=== PATIENT | female | born 1985 | race Caucasian/White ===

== ENCOUNTER 2017-05-18 11:53 | Emergency (ER) | payer OTHER | END 2017-05-18 12:10 | disposition home or self-care (01) | LOC: E/R 12:10 | DX: Z76.0 Encounter for issue of repeat prescription (principal); E03.9 Hypothyroidism, unspecified; Z87.891 Personal history of nicotine dependence | CPT/HCPCS: 99281; Z7502 ==

== ENCOUNTER 2017-06-05 02:51 | Emergency (ER) | payer SELFPAY, OTHER | END 2017-06-05 04:39 | disposition left against medical advice (07) | LOC: FTE 02:51 | DX: Z53.21 Procedure and treatment not carried out due to patient leaving prior to being seen by health care provider (principal) ==

== ENCOUNTER 2017-07-18 00:11 | Emergency (ER) | payer SELFPAY, MEDICAID ==
[2017-07-18] MEDS: LAMOTRIGINE 25 MG TAB PO (01:08)
== END 2017-07-18 01:11 | disposition home or self-care (01) ==
LOC: E/R 00:11
DX: F31.11 Bipolar disorder, current episode manic without psychotic features, mild (principal); E03.9 Hypothyroidism, unspecified; Z76.0 Encounter for issue of repeat prescription; Z87.891 Personal history of nicotine dependence
CPT/HCPCS: 99283

== ENCOUNTER 2017-07-28 09:44 | Emergency (ER) | payer SELFPAY | END 2017-07-28 16:55 | disposition left against medical advice (07) | LOC: FTE 09:44 | DX: Z53.21 Procedure and treatment not carried out due to patient leaving prior to being seen by health care provider (principal) ==

== ENCOUNTER 2017-09-17 00:40 | Emergency (ER) | payer OTHER ==
[2017-09-17] MEDS: LAMOTRIGINE 25 MG TAB PO (01:46)
== END 2017-09-17 04:00 | disposition left against medical advice (07) ==
LOC: FTE 00:40
DX: Z76.0 Encounter for issue of repeat prescription (principal); E03.9 Hypothyroidism, unspecified
CPT/HCPCS: 99283; Z7502

== ENCOUNTER 2017-09-25 00:08 | Emergency (ER) | payer OTHER ==
[2017-09-25] MEDS: LAMOTRIGINE 25 MG TAB PO (01:57)
== END 2017-09-25 02:24 | disposition home or self-care (01) ==
LOC: FTE 00:08
DX: B37.9 Candidiasis, unspecified (principal); L02.415 Cutaneous abscess of right lower limb; E03.9 Hypothyroidism, unspecified; Z87.891 Personal history of nicotine dependence
CPT/HCPCS: 99284; Z7502

== ENCOUNTER 2017-10-23 11:56 | Emergency (ER) | payer OTHER ==
[2017-10-23] MEDS: LAMOTRIGINE 25 MG TAB PO (12:49)
== END 2017-10-23 13:03 | disposition home or self-care (01) ==
LOC: FTE 13:03
DX: A63.0 Anogenital (venereal) warts (principal); E03.9 Hypothyroidism, unspecified; Z76.0 Encounter for issue of repeat prescription
CPT/HCPCS: 99283; Z7502

== ENCOUNTER 2017-11-26 10:11 | Emergency (ER) | payer OTHER | END 2017-11-26 12:03 | disposition home or self-care (01) | LOC: FTE 10:11 | DX: Z76.0 Encounter for issue of repeat prescription (principal) | CPT/HCPCS: 99281; Z7502 ==

== ENCOUNTER 2017-12-10 14:54 | Emergency (ER) | payer OTHER | END 2017-12-10 15:59 | disposition home or self-care (01) | LOC: FTE 14:54 | DX: L02.31 Cutaneous abscess of buttock (principal) | CPT/HCPCS: 99283; Z7502 ==

== ENCOUNTER 2017-12-22 03:29 | Emergency (ER) | payer OTHER ==
[2017-12-22 05:40] LABS: URINE BLOOD (Dip) POC 1+ (NEGATIVE); URINE GLUCOSE (Dip) POC Negative (NEGATIVE); URINE KETONES (Dip) POC Negative (NEGATIVE); URINE LEUKOCYTE EST (Dip) POC 1+ (NEGATIVE); URINE NITRITE (Dip) POC Negative (NEGATIVE); URINE TOTAL PROTEIN POC Trace (NEGATIVE)
[2017-12-22 05:40] LABS: URINE PH (Dip) POC 7.5 (5.0-8.5)
== END 2017-12-22 06:00 | disposition home or self-care (01) ==
LOC: FTE 03:29
DX: N39.0 Urinary tract infection, site not specified (principal)
CPT/HCPCS: 81003; 99283

== ENCOUNTER 2018-01-02 00:08 | Emergency (ER) | payer OTHER | END 2018-01-02 01:08 | disposition home or self-care (01) | LOC: FTE 00:08 | DX: F41.9 Anxiety disorder, unspecified (principal); L65.9 Nonscarring hair loss, unspecified; E03.9 Hypothyroidism, unspecified; Z76.0 Encounter for issue of repeat prescription | CPT/HCPCS: 99282 ==

== ENCOUNTER 2018-01-15 23:21 | Emergency (ER) | payer OTHER ==
[2018-01-16] MEDS ORDERED: SOD CHLORIDE 0.9% 1,000 ML IV (03:05)
[2018-01-16] MEDS ORDERED: KETOROLAC 15 MG INJ IV (03:05)
[2018-01-16] MEDS ORDERED: CEFTRIAXONE 1 GM/50 ML (PMX) 50 ML IVPB (03:05)
[2018-01-16 03:19] LABS: ADD MAN DIFF? NO
[2018-01-16 03:20] LABS: BASOPHILS % 0.4 % (0.0-2.0); EOSINOPHILS # 0.1 10^3/ul (0.0-0.5); EOSINOPHILS % 1.2 % (0.0-7.0); HEMATOCRIT 34.5 % (37.0-47.0); HEMOGLOBIN 11.4 g/dl (12.0-16.0); LYMPHOCYTES # 2.1 10^3/ul (0.8-2.9); LYMPHOCYTES % 37.1 % (15.0-51.0); MEAN CORPUSCULAR HEMOGLOBIN 29.7 pg (29.0-33.0); MEAN CORPUSCULAR VOLUME 89.8 fl (82.0-101.0); MONOCYTE # 0.5 10^3/ul (0.3-0.9); MONOCYTES % 8.1 % (0.0-11.0); PLATELET COUNT 187 10^3/UL (140-415); RED BLOOD COUNT 3.84 10^6/ul (4.20-5.40); RED CELL DISTRIBUTION WIDTH 12.7 % (11.5-14.5)
[2018-01-16 03:20] LABS: WHITE BLOOD COUNT 5.7 10^3/ul (4.8-10.8)
[2018-01-16 03:36] LABS: ANION GAP 9 (5-13); BLOOD UREA NITROGEN 17 mg/dl (7-20); CALCIUM 9.5 mg/dl (8.4-10.2); CARBON DIOXIDE 32 mmol/L (21-31); CHLORIDE 105 mmol/L (97-110); CREATININE 0.56 mg/dl (0.44-1.00); Estimated GFR > 60 mL/min (>60); GLUCOSE 114 mg/dl (70-220); POTASSIUM 3.7 mmol/L (3.5-5.1); SODIUM 146 mmol/L (135-144)
== END 2018-01-16 04:15 | disposition left against medical advice (07) ==
LOC: E/R 23:21
DX: F15.10 Other stimulant abuse, uncomplicated (principal); F11.10 Opioid abuse, uncomplicated; L03.211 Cellulitis of face; R40.2142 Coma scale, eyes open, spontaneous, at arrival to emergency department; R40.2252 Coma scale, best verbal response, oriented, at arrival to emergency department; R40.2362 Coma scale, best motor response, obeys commands, at arrival to emergency department
CPT/HCPCS: 36415; 80048; 85025; 99283

== ENCOUNTER 2018-01-25 16:34 | Emergency (ER) | payer OTHER ==
[2018-01-25] MEDS: LAMOTRIGINE 100 MG TAB PO (19:39)
== END 2018-01-25 19:41 | disposition home or self-care (01) ==
LOC: FTE 19:41
DX: Z76.0 Encounter for issue of repeat prescription (principal)
CPT/HCPCS: 99281; Z7502

== ENCOUNTER 2018-02-20 12:33 | Emergency (ER) | payer OTHER ==
[2018-02-20] MEDS: MUPIROCIN 2% 22 GM OINT TOP (15:03)
== END 2018-02-20 15:05 | disposition home or self-care (01) ==
LOC: FTE 12:33
DX: L02.01 Cutaneous abscess of face (principal); B95.8 Unspecified staphylococcus as the cause of diseases classified elsewhere
CPT/HCPCS: 99283; Z7502

== ENCOUNTER 2018-02-24 03:08 | Emergency (ER) | payer OTHER ==
[2018-02-24] MEDS: LIDOCAINE 1% (MDV) 20 ML INJ SC (04:20)
[2018-02-24] MEDS: CEFTRIAXONE 1 GM INJ IM (04:20)
== END 2018-02-24 04:22 | disposition home or self-care (01) ==
LOC: FTE 03:08
DX: K08.89 Other specified disorders of teeth and supporting structures (principal); L08.9 Local infection of the skin and subcutaneous tissue, unspecified; L02.415 Cutaneous abscess of right lower limb; L02.01 Cutaneous abscess of face
CPT/HCPCS: 96372; 99284-25

== ENCOUNTER 2018-03-31 15:48 | Emergency (ER) | payer SELFPAY, OTHER | END 2018-03-31 20:35 | disposition left against medical advice (07) | LOC: FTE 15:48 | DX: Z53.21 Procedure and treatment not carried out due to patient leaving prior to being seen by health care provider (principal) ==

== ENCOUNTER 2018-04-12 00:27 | Emergency (ER) | payer SELFPAY | END 2018-04-12 05:05 | disposition left against medical advice (07) | LOC: FTE 00:27 | DX: Z53.21 Procedure and treatment not carried out due to patient leaving prior to being seen by health care provider (principal) ==

== ENCOUNTER 2018-04-12 07:54 | Emergency (ER) | payer OTHER ==
[2018-04-12] MEDS: LAMOTRIGINE 100 MG TAB PO (08:24)
== END 2018-04-12 08:27 | disposition home or self-care (01) ==
LOC: FTE 07:54
DX: Z76.0 Encounter for issue of repeat prescription (principal); E03.9 Hypothyroidism, unspecified; F17.210 Nicotine dependence, cigarettes, uncomplicated
CPT/HCPCS: 99283; Z7502

== ENCOUNTER 2018-05-07 12:08 | Emergency (ER) | payer OTHER ==
[2018-05-07] MEDS: LAMOTRIGINE 100 MG TAB PO (14:40)
== END 2018-05-07 14:55 | disposition home or self-care (01) ==
LOC: FTE 12:08
DX: Z76.0 Encounter for issue of repeat prescription (principal)
CPT/HCPCS: 99283; Z7502

== ENCOUNTER 2018-05-23 15:28 | Inpatient (IN) | payer OTHER ==
[2018-05-23 19:08] LABS: ADD MAN DIFF? NO
[2018-05-23] MEDS: ACETAMINOPHEN 325 MG TAB PO ×2 (19:18→23:36)
[2018-05-23] MEDS: SODIUM CHLORIDE 0.9% 1L BAG IV* (19:19)
[2018-05-23 19:30] LABS: PARTIAL THROMBOPLASTIN TIME 29.7 Sec (23.0-35.0)
[2018-05-23] MEDS: IPRATROPIUM (NEB) 0.5 MG/2.5 ML AMP INH (19:32)
[2018-05-23] MEDS: LEVALBUTEROL (NEB) 1.25 MG/0.5 ML AMP INH (19:32)
[2018-05-23 19:33] LABS: ALBUMIN 4.4 g/dl (3.3-4.9); ALBUMIN/GLOBULIN RATIO 1.15; ALKALINE PHOSPHATASE 73 IU/L (42-121); ANION GAP 9 (5-13); ASPARTATE AMINO TRANSFERASE 15 IU/L (15-46); BILIRUBIN,INDIRECT 0.4 mg/dl (0-1.1); BILIRUBIN,TOTAL 0.4 mg/dl (0.2-1.3); BLOOD UREA NITROGEN 9 mg/dl (7-20); CALCIUM 9.5 mg/dl (8.4-10.2); CARBON DIOXIDE 27 mmol/L (21-31); CHLORIDE 101 mmol/L (97-110); CREATININE 0.66 mg/dl (0.44-1.00); Estimated GFR > 60 mL/min (>60); GLUCOSE 125 mg/dl (70-220); POTASSIUM 3.8 mmol/L (3.5-5.1); SODIUM 137 mmol/L (135-144); TOTAL PROTEIN 8.2 g/dl (6.1-8.1)
[2018-05-23 19:40] LABS: ALANINE AMINOTRANSFERASE < 6 IU/L (13-69)
[2018-05-23 19:44] LABS: INR 1.01; PROTIME 13.4 Sec (11.9-14.9); TROPONIN-I < 0.012 ng/ml (0.000-0.120)
[2018-05-23] MEDS ORDERED: ACCU-CHEK XX (20:00)
[2018-05-23] MEDS ORDERED: INSULIN LISPRO 100 UNIT/ML VIAL SC (20:00)
[2018-05-23 20:12] LABS: WHITE BLOOD COUNT 17.2 10^3/ul (4.8-10.8)
[2018-05-23 20:12] LABS: BASOPHILS % 0.2 % (0.0-2.0); EOSINOPHILS % 0.1 % (0.0-7.0); HEMOGLOBIN 12.8 g/dl (12.0-16.0); LYMPHOCYTES # 0.9 10^3/ul (0.8-2.9); LYMPHOCYTES % 5.5 % (15.0-51.0); MEAN CORPUSCULAR HEMOGLOBIN 30.3 pg (29.0-33.0); MEAN CORPUSCULAR HGB CONC 33.7 g/dl (32.0-37.0); MONOCYTE # 0.5 10^3/ul (0.3-0.9); MONOCYTES % 2.9 % (0.0-11.0); NEUTROPHIL # 15.6 10^3/ul (1.6-7.5); NEUTROPHILS % 90.8 % (39.0-77.0); PLATELET COUNT 212 10^3/UL (140-415); RED BLOOD COUNT 4.22 10^6/ul (4.20-5.40); RED CELL DISTRIBUTION WIDTH 12.5 % (11.5-14.5)
[2018-05-23 21:38] LABS: URINE BLOOD (Dip) POC Trace-intact (NEGATIVE); URINE GLUCOSE (Dip) POC Negative (NEGATIVE); URINE KETONES (Dip) POC Negative (NEGATIVE); URINE LEUKOCYTE EST (Dip) POC Negative (NEGATIVE); URINE NITRITE (Dip) POC Negative (NEGATIVE); URINE TOTAL PROTEIN POC Negative (NEGATIVE)
[2018-05-23 21:38] LABS: URINE PH (Dip) POC 7.5 (5.0-8.5)
[2018-05-23 22:14] LABS: ADD UMIC NO; UR ASCORBIC ACID NEGATIVE (NEGATIVE); UR BACTERIA FEW /HPF (NONE SEEN); UR BILIRUBIN (Dip) NEGATIVE (NEGATIVE); UR BLOOD (Dip) NEGATIVE (NEGATIVE); UR CLARITY SLIGHTLY CLOUDY (CLEAR); UR COLOR YELLOW (YELLOW); UR GLUCOSE (Dip) NEGATIVE (NEGATIVE); UR KETONES (Dip) NEGATIVE (NEGATIVE); UR LEUKOCYTE ESTERASE (Dip) NEGATIVE Leu/ul (NEGATIVE); UR NITRITE (Dip) NEGATIVE (NEGATIVE); UR RBC 1 /HPF (0-5); UR SPECIFIC GRAVITY (Dip) 1.006 (1.003-1.030); UR SQUAMOUS EPITHELIAL CELL FEW /HPF (FEW); UR TOTAL PROTEIN (Dip) NEGATIVE (NEGATIVE); UR UROBILINOGEN (Dip) NEGATIVE (NEGATIVE); UR WBC 1 /HPF (0-5)
[2018-05-23] MEDS: SOD CHLORIDE 0.9% 1,000 ML IV (22:44)
[2018-05-23] MEDS: CEFTRIAXONE 1 GM/50 ML (PMX) 50 ML IVPB (22:44)
[2018-05-23 22:46] LABS: BARBITURATES Negative (NEGATIVE); BENZODIAZEPINES Negative (NEGATIVE); CANNABINOIDS Negative (NEGATIVE); COCAINE Negative (NEGATIVE)
[2018-05-23 22:52] LABS: OPIATES Positive (NEGATIVE)
[2018-05-23 22:54] LABS: AMPHETAMINE/METHAMPHETAMINE POSITIVE (NEGATIVE)
[2018-05-23] MEDS: AZITHROMYCIN 500MG/NS (PMX) 250 ML IVPB (23:09)
[2018-05-23 23:19] LABS: LACTIC ACID 2.6 mmol/L (0.5-2.0)
[2018-05-23] MEDS: ONDANSETRON 4 MG INJ IV (23:36)
[2018-05-23] MEDS: morphine 4 MG/ML VIAL IV (23:36)
[2018-05-24] MEDS ORDERED: ACETAMINOPHEN 325 MG TAB PO (01:00)
[2018-05-24] MEDS: SOD CHLORIDE 0.9% 1,000 ML IV ×2 (01:04→09:00)
[2018-05-24] MEDS: PIPER-TAZO 3.375 GM IV (PMX) 100 ML IVPB ×2 (01:10→05:12)
[2018-05-24] MEDS: PANTOPRAZOLE 40 MG INJ IV (05:11)
[2018-05-24] MEDS: morphine 2 MG INJ IV ×2 (05:18→10:39)
[2018-05-24] MEDS: ONDANSETRON 4 MG INJ IV (06:50)
[2018-05-24 06:54] LABS: ADD MAN DIFF? NO
[2018-05-24 06:56] LABS: BASOPHILS % 0.2 % (0.0-2.0); HEMATOCRIT 34.4 % (37.0-47.0); HEMOGLOBIN 11.3 g/dl (12.0-16.0); LYMPHOCYTES # 0.7 10^3/ul (0.8-2.9); LYMPHOCYTES % 5.6 % (15.0-51.0); MEAN CORPUSCULAR HEMOGLOBIN 29.8 pg (29.0-33.0); MEAN CORPUSCULAR HGB CONC 32.8 g/dl (32.0-37.0); MEAN CORPUSCULAR VOLUME 90.8 fl (82.0-101.0); MEAN PLATELET VOLUME 10.6 fl (7.4-10.4); MONOCYTE # 0.5 10^3/ul (0.3-0.9); MONOCYTES % 4.1 % (0.0-11.0); NEUTROPHIL # 11.1 10^3/ul (1.6-7.5); NEUTROPHILS % 89.5 % (39.0-77.0); PLATELET COUNT 171 10^3/UL (140-415); RED BLOOD COUNT 3.79 10^6/ul (4.20-5.40); RED CELL DISTRIBUTION WIDTH 12.8 % (11.5-14.5)
[2018-05-24 06:56] LABS: WHITE BLOOD COUNT 12.4 10^3/ul (4.8-10.8)
[2018-05-24 07:31] LABS: ANION GAP 7 (5-13); BLOOD UREA NITROGEN 7 mg/dl (7-20); CALCIUM 8.6 mg/dl (8.4-10.2); CARBON DIOXIDE 23 mmol/L (21-31); CHLORIDE 112 mmol/L (97-110); CREATININE 0.64 mg/dl (0.44-1.00); Estimated GFR > 60 mL/min (>60); GLUCOSE 141 mg/dl (70-220); POTASSIUM 3.7 mmol/L (3.5-5.1); SODIUM 142 mmol/L (135-144)
[2018-05-24] MEDS ORDERED: ALBUTEROL/IPRATROPIUM (NEB) 3 ML AMP HHN (14:00)
[2018-05-25] MEDS ORDERED: LEVOTHYROXINE 25 MCG TAB PO (07:00)
[2018-05-25] MEDS ORDERED: MULTIVITAMINS THERAPEUTIC TAB PO (09:00)
[2018-05-25] MEDS ORDERED: LAMOTRIGINE 100 MG TAB PO (09:00)
== END 2018-05-24 14:40 | disposition left against medical advice (07) | DRG 202 ==
LOC: E/R 15:28 → TEL 21:44
DX: J40 Bronchitis, not specified as acute or chronic (principal); R65.10 Systemic inflammatory response syndrome (SIRS) of non-infectious origin without acute organ dysfunction; E87.2 Acidosis; E03.9 Hypothyroidism, unspecified; F11.10 Opioid abuse, uncomplicated; M79.7 Fibromyalgia; F17.210 Nicotine dependence, cigarettes, uncomplicated; F32.9 Major depressive disorder, single episode, unspecified
CPT/HCPCS: 71045; 80048; 80053; 80307; 81001; 81003; 81025; 83605; 84484; 85025; 85610; 85730; 87040-91; 87086; 87400; 93005; 94644; 99285-25; G0378

== ENCOUNTER 2018-06-11 03:53 | Emergency (ER) | payer SELFPAY, OTHER | END 2018-06-11 08:11 | disposition left against medical advice (07) | LOC: FTE 08:11 | DX: Z53.21 Procedure and treatment not carried out due to patient leaving prior to being seen by health care provider (principal) ==

== ENCOUNTER 2018-06-13 00:23 | Emergency (ER) | payer OTHER | END 2018-06-13 03:30 | disposition left against medical advice (07) | LOC: FTE 00:23 | DX: J30.9 Allergic rhinitis, unspecified (principal); E03.9 Hypothyroidism, unspecified | CPT/HCPCS: 99283; Z7502 ==

== ENCOUNTER 2018-06-17 16:50 | Emergency (ER) | payer OTHER | END 2018-06-17 17:39 | disposition home or self-care (01) | LOC: FTE 16:50 | DX: J01.90 Acute sinusitis, unspecified (principal); E03.9 Hypothyroidism, unspecified | CPT/HCPCS: 99283; Z7502 ==

== ENCOUNTER 2018-08-01 04:26 | Emergency (ER) | payer SELFPAY, OTHER | END 2018-08-01 04:59 | disposition left against medical advice (07) | LOC: E/R 04:26 | DX: Z53.21 Procedure and treatment not carried out due to patient leaving prior to being seen by health care provider (principal) ==

== ENCOUNTER 2018-08-03 11:15 | Emergency (ER) | payer OTHER | END 2018-08-03 11:43 | disposition home or self-care (01) | LOC: E/R 11:15 | DX: R42 Dizziness and giddiness (principal); E03.9 Hypothyroidism, unspecified; Z87.891 Personal history of nicotine dependence | CPT/HCPCS: 99283; Z7502 ==

== ENCOUNTER 2018-08-05 13:18 | Emergency (ER) | payer OTHER ==
[2018-08-05 14:56] LABS: ADD UMIC YES; UR ASCORBIC ACID NEGATIVE (NEGATIVE); UR BACTERIA FEW /HPF (NONE SEEN); UR BILIRUBIN (Dip) NEGATIVE (NEGATIVE); UR BLOOD (Dip) 2+ mg/dL (NEGATIVE); UR CLARITY CLOUDY (CLEAR); UR COLOR YELLOW (YELLOW); UR GLUCOSE (Dip) NEGATIVE (NEGATIVE); UR KETONES (Dip) NEGATIVE (NEGATIVE); UR LEUKOCYTE ESTERASE (Dip) 3+ Leu/ul (NEGATIVE); UR MUCUS MODERATE /HPF (NONE SEEN); UR NITRITE (Dip) POSITIVE (NEGATIVE); UR RBC 3 /HPF (0-5); UR SPECIFIC GRAVITY (Dip) 1.019 (1.003-1.030); UR SQUAMOUS EPITHELIAL CELL FEW /HPF (FEW); UR TOTAL PROTEIN (Dip) 1+ mg/dl (NEGATIVE); UR UROBILINOGEN (Dip) NEGATIVE (NEGATIVE); UR WBC > 182 /HPF (0-5)
[2018-08-05] MEDS ORDERED: ACETAMINOPHEN 500 MG TAB PO (14:59)
[2018-08-05] MEDS ORDERED: KETOROLAC 60 MG INJ IM (14:59)
[2018-08-05] MEDS ORDERED: CEFTRIAXONE 1 GM INJ IM (15:00)
[2018-08-05] MEDS ORDERED: LIDOCAINE 1% (MPF) 5 ML VIAL INFIL (15:00)
[2018-08-05] MEDS ORDERED: PHENAZOPYRIDINE 100 MG TAB PO (15:30)
== END 2018-08-05 15:56 | disposition left against medical advice (07) ==
LOC: FTE 13:18
DX: N30.01 Acute cystitis with hematuria (principal); E03.9 Hypothyroidism, unspecified; Z76.0 Encounter for issue of repeat prescription; Z59.0 Homelessness
CPT/HCPCS: 81001; 81025; 87086; 99283

== ENCOUNTER 2018-08-28 23:00 | Emergency (ER) | payer OTHER ==
[2018-08-28] MEDS: predniSONE 20 MG TAB PO (23:15)
[2018-08-28] MEDS: ALBUTEROL 0.5% (NEB) 2.5 MG/0.5 ML AMP INH (23:51)
[2018-08-29] MEDS: ONDANSETRON (ODT) 4 MG TAB ODT (02:06)
== END 2018-08-29 02:09 | disposition home or self-care (01) ==
LOC: FTE 08-29 02:09
DX: R06.2 Wheezing (principal)
CPT/HCPCS: 71045; 94644; 99283-25

== ENCOUNTER 2018-08-29 19:11 | Emergency (ER) | payer SELFPAY, OTHER | END 2018-08-30 03:03 | disposition left against medical advice (07) | LOC: FTE 08-30 03:03 | DX: Z53.21 Procedure and treatment not carried out due to patient leaving prior to being seen by health care provider (principal) ==

== ENCOUNTER 2018-09-05 16:46 | Emergency (ER) | payer OTHER ==
[2018-09-05] MEDS: LAMOTRIGINE 100 MG TAB PO (18:00)
[2018-09-05] MEDS: LAMOTRIGINE 25 MG TAB PO (18:02)
== END 2018-09-05 19:25 | disposition left against medical advice (07) ==
LOC: FTE 16:46
DX: Z76.0 Encounter for issue of repeat prescription (principal)
CPT/HCPCS: 99283; Z7502

== ENCOUNTER 2018-09-08 12:02 | Emergency (ER) | payer SELFPAY, OTHER | END 2018-09-08 12:35 | disposition home or self-care (01) | LOC: E/R 12:02 | DX: Z76.0 Encounter for issue of repeat prescription (principal) | CPT/HCPCS: 99281 ==

== ENCOUNTER 2018-09-09 12:18 | Emergency (ER) | payer SELFPAY | END 2018-09-09 13:46 | disposition home or self-care (01) | LOC: FTE 12:18 | DX: R19.7 Diarrhea, unspecified (principal); E03.9 Hypothyroidism, unspecified | CPT/HCPCS: 99283 ==

== ENCOUNTER 2018-09-16 02:18 | Emergency (ER) | payer SELFPAY ==
[2018-09-16 02:55] LABS: URINE PH (Dip) POC 7.5 (5.0-8.5)
[2018-09-16 02:55] LABS: URINE BLOOD (Dip) POC Trace-intact (NEGATIVE); URINE GLUCOSE (Dip) POC Negative (NEGATIVE); URINE KETONES (Dip) POC Negative (NEGATIVE); URINE LEUKOCYTE EST (Dip) POC 1+ (NEGATIVE); URINE NITRITE (Dip) POC Negative (NEGATIVE); URINE TOTAL PROTEIN POC Negative (NEGATIVE)
[2018-09-16 04:46] LABS: ADD UMIC YES; UR ASCORBIC ACID NEGATIVE (NEGATIVE); UR BACTERIA FEW /HPF (NONE SEEN); UR BILIRUBIN (Dip) NEGATIVE (NEGATIVE); UR BLOOD (Dip) NEGATIVE (NEGATIVE); UR CLARITY CLEAR (CLEAR); UR COLOR STRAW (YELLOW); UR GLUCOSE (Dip) NEGATIVE (NEGATIVE); UR KETONES (Dip) NEGATIVE (NEGATIVE); UR LEUKOCYTE ESTERASE (Dip) 1+ Leu/ul (NEGATIVE); UR NITRITE (Dip) NEGATIVE (NEGATIVE); UR RBC 1 /HPF (0-5); UR SPECIFIC GRAVITY (Dip) 1.006 (1.003-1.030); UR TOTAL PROTEIN (Dip) NEGATIVE (NEGATIVE); UR UROBILINOGEN (Dip) NEGATIVE (NEGATIVE); UR WBC 37 /HPF (0-5)
[2018-09-16] MEDS: CEFTRIAXONE 1 GM INJ IM (04:55)
[2018-09-16] MEDS: LIDOCAINE 1% (MDV) 20 ML INJ SC (04:55)
== END 2018-09-16 05:30 | disposition home or self-care (01) ==
LOC: FTE 02:18
DX: R30.0 Dysuria (principal); F17.210 Nicotine dependence, cigarettes, uncomplicated
CPT/HCPCS: 81001; 81003; 81025; 87086; 96372; 99284-25

== ENCOUNTER 2018-10-15 17:02 | Emergency (ER) | payer MEDICAID ==
[2018-10-15] MEDS: IPRATROPIUM (NEB) 0.5 MG/2.5 ML AMP NEB (17:17)
[2018-10-15] MEDS: ALBUTEROL 0.083% (NEB) 2.5 MG/3 ML AMP NEB (17:18)
[2018-10-15] MEDS: predniSONE 20 MG TAB PO (17:47)
== END 2018-10-15 18:00 | disposition home or self-care (01) ==
LOC: E/R 17:02
DX: J45.901 Unspecified asthma with (acute) exacerbation (principal); E03.9 Hypothyroidism, unspecified
CPT/HCPCS: 94664; 99284-25

== ENCOUNTER 2018-10-17 01:12 | Emergency (ER) | payer MEDICAID ==
[2018-10-17] MEDS: DIAZEPAM 5 MG TAB PO (01:59)
[2018-10-17] MEDS: ALBUTEROL 0.083% (NEB) 2.5 MG/3 ML AMP NEB (02:00)
[2018-10-17] MEDS: IPRATROPIUM (NEB) 0.5 MG/2.5 ML AMP NEB (02:00)
[2018-10-17 02:36] LABS: URINE BLOOD (Dip) POC 2+ (NEGATIVE); URINE GLUCOSE (Dip) POC Negative (NEGATIVE); URINE KETONES (Dip) POC Trace (NEGATIVE); URINE LEUKOCYTE EST (Dip) POC Negative (NEGATIVE); URINE NITRITE (Dip) POC Negative (NEGATIVE); URINE TOTAL PROTEIN POC Negative (NEGATIVE)
[2018-10-17 02:36] LABS: URINE PH (Dip) POC 5.5 (5.0-8.5)
== END 2018-10-17 03:30 | disposition home or self-care (01) ==
LOC: E/R 01:12
DX: F41.9 Anxiety disorder, unspecified (principal); R40.2142 Coma scale, eyes open, spontaneous, at arrival to emergency department; R40.2252 Coma scale, best verbal response, oriented, at arrival to emergency department; R40.2362 Coma scale, best motor response, obeys commands, at arrival to emergency department; N76.0 Acute vaginitis; J45.901 Unspecified asthma with (acute) exacerbation; E03.9 Hypothyroidism, unspecified; Z87.891 Personal history of nicotine dependence
CPT/HCPCS: 81003; 81025; 87591; 94664; 99283-25

== ENCOUNTER 2018-10-17 17:27 | Emergency (ER) | payer MEDICAID | END 2018-10-17 17:51 | disposition home or self-care (01) | LOC: E/R 17:27 | DX: J40 Bronchitis, not specified as acute or chronic (principal); E03.9 Hypothyroidism, unspecified | CPT/HCPCS: 99283; Z7502 ==